=== PATIENT | male | born 1980 ===

== ENCOUNTER 2016-12-06 21:33 | Emergency (ER) | payer SELFPAY ==
[2016-12-06 21:43] VITALS: BP 119/75; PULSE 75; RESP 20; TEMP 97.5; O2SAT 99
[2016-12-06] MEDS ORDERED: Lidocaine 1% Inj (20ml) IV STA (22:31)
[2016-12-06] MEDS ORDERED: Lidocaine 1% Inj (20ml) ONE (22:36)
[2016-12-06] MEDS ORDERED: Bacitracin Ointment 30 GM TUBE TOP STA (22:40)
--- NOTE | 2016-12-07 00:11 | C.PDOC ---
History Of Present Illness 36 year old male who presents to the ER with a complaint of multiple lacerations to the right hand after punching through a glass window. Patient's last tetanus is unknown; denies weakness, numbness, or any other known injury. Chief Complaint (Nursing): Abnormal Skin Integrity History Per: Patient History/Exam Limitations: no limitations Onset/Duration Of Symptoms: Hrs Current Symptoms Are (Timing): Still Present Location Of Injury: Right: Hand Quality Of Symptoms: Other (Laceration) Recent travel outside of the [place]: No Past Medical History Reviewed: Historical Data, Nursing Documentation, Vital Signs Vital Signs: Last Vital Signs Temp 97.5 F L 12/06/16 21:38 Pulse 75 12/06/16 21:38 Resp 20 12/06/16 21:38 BP 119/75 12/06/16 21:38 Pulse Ox 99 12/08/16 02:45 - Medical History PMH: No Chronic Diseases Surgical History: No Surg Hx Family History: States: Unknown Family Hx - Social History Hx Alcohol Use: No Hx Substance Use: No - Immunization History Hx Tetanus Toxoid Vaccination: No Hx Influenza Vaccination: No Hx Pneumococcal Vaccination: No Review Of Systems Musculoskeletal: Positive for: Hand Pain Neurological: Negative for: Weakness, Numbness Physical Exam - Physical Exam Appears: Non-toxic Skin: Warm, Dry Head: Atraumatic, Normacephalic Extremity: Normal ROM (right hand from at wrost and fingers. able to flex and extend all fingers with resistance), Other (1cm shallow lacerations to dorsal surfaces 2nd and 4th digits of right hand. 4cm curved deep laceration to medial aspect of middle finger of right hand, no tendon injury noted.) Neurological/Psych: Oriented x3, Normal Speech, Normal Cognition, Normal Motor, Normal Sensation ED Course And Treatment O2 Sat by Pulse Oximetry: 99 (Room air) Pulse Ox Interpretation: Normal Progress Note: Bacitracin applied; laceration repair done. Laceration - Laceration Repair Right hand Wound Length (In cm): 4 Description Of Wound: Irregular (Curved) Wound Cleansed With: Betadine Anesthesia: Lidocaine 1% Wound Examination: Irrigated With Saline, No FB With Wound Exploration, No Tendon Injury With Wound Exploration Wound Closure: Suture (9 sutures) Suture Technique And Material Used: Interrupted, Nylon (4-0) Wound Complexity: Simple Disposition Counseled Patient/Family Regarding: Diagnosis, Need For Followup - Disposition Referrals: [facility] [Outside] [facility] [Outside] Disposition: HOME/ ROUTINE Disposition Time: 00:11 Condition: IMPROVED Additional Instructions: Keep clean and dry for 24 hours. then wash gently with soap and water, apply antibiotic ointment, then re-cover. Return to ER for any signs of infection such as redness. swelling, pus or drainage. Tylenol or Motrin for pain. Follow up in clinic in 2 weeks for suture removal. call for an appointment. Prescriptions: Ibuprofen [Motrin] 600 mg PO TID #30 tab Instructions: Care For Your Stitches (ED), Laceration (ED) Forms: General Discharge Instructions - Clinical Impression Clinical Impression: Laceration of right middle finger - Scribe Statement The provider has reviewed the documentation as recorded by the Scribvero Chung All medical record entries made by the Scribe were at my direction and personally dictated by me. I have reviewed the chart and agree that the record accurately reflects my personal performance of the history, physical exam, medical decision making, and the department course for this patient. I have also personally directed, reviewed, and agree with the discharge instructions and disposition.
== END 2016-12-07 00:20 | disposition home or self-care (01) ==
LOC: C.ER 21:33
DX: S61.212A Laceration without foreign body of right middle finger without damage to nail, initial encounter (principal); S61.210A Laceration without foreign body of right index finger without damage to nail, initial encounter; S61.214A Laceration without foreign body of right ring finger without damage to nail, initial encounter; W25.XXXA Contact with sharp glass, initial encounter; Y92.9 Unspecified place or not applicable